=== PATIENT | female | born 1960 | race Two or more races ===

== ENCOUNTER 2018-01-22 04:40 | Inpatient (IN) | payer OTHER ==
[~2018-01-22] VITALS: Ht 157.5 cm; Wt 89.4 kg
[2018-01-22] MEDS ORDERED: CELECOXIB 100 MG CAPSULE ONE (05:05)
[2018-01-22] MEDS ORDERED: METOCLOPRAMIDE HCL 10 MG/2 ML VIAL ONE (05:05)
[2018-01-22] MEDS ORDERED: oxyCODONE HCL SR 10MG TAB.SR.12H PO ONE (05:05)
[2018-01-22] MEDS ORDERED: ACETAMINOPHEN ES 500 MG TABLET ONE (05:05)
[2018-01-22] MEDS ORDERED: ANESTHESIA TRAY IN PYXIS 1 EA TRAY MC ONE ×2 (06:19→06:56)
[2018-01-22] MEDS ORDERED: MORPHINE SULFATE INJ 4 MG/ML DISP.SYRIN ONE (06:33)
[2018-01-22] MEDS ORDERED: BUPIVACAINE 0.5 % PF 150 MG/30 ML VIAL ONE ×2 (06:33→06:56)
[2018-01-22] MEDS ORDERED: KETOROLAC TROMETHAMINE INJ 30 MG/ML VIAL ONE ×2 (06:33→10:11)
[2018-01-22] MEDS ORDERED: BACITRACIN 50000 UNITS/VIAL ONE ×2 (06:34→06:56)
[2018-01-22] MEDS ORDERED: FENTANYL PF 100MCG/2ML AMPUL ONE (06:54)
[2018-01-22] MEDS ORDERED: MIDAZOLAM HCL 2 MG/2ML VIAL ONE (06:54)
[2018-01-22] MEDS ORDERED: CLINDAMYCIN 900 MG/6 ML VIAL ONE (06:57)
[2018-01-22] MEDS ORDERED: TRANEXAMIC ACID 1,500 MG in IV NS 0.9% 50 ML IV ONE (08:00)
[2018-01-22] MEDS ORDERED: oxyCODONE IR immediate release 5 MG ONE (10:13)
[2018-01-22] MEDS ORDERED: ASPIRIN 600 MG/SUPP.RECT RC ONE (10:30)
[2018-01-22 12:00] VITALS: BP 129/82
--- NOTE | 2018-01-22 12:00 | NUR ---
PATIENT POS OP AFTER RIGHT SHOULDER REPLACEMENT, WAS BROUGHT TO THE UNIT BY BORIS FROM OR, FOR OBSERVATION ONLY PURPOSES DUE TO PATIENT'S INCREASED HR AND DECREASED O2 SATURATION. PATIENT IS STABLE, VITAL SIGNS ARE BP 129/82, HR 103, O2 SAT 92% ON 4 L O2 VIA NC. TEMP: 97.5, RR: 18. PATIENT IS ALERT ORIENTED X3, IN SLIGHT DISCOMFORT DUE TO SURGERY BUT DENIES SIGNIFICANT PAIN. RESPIRATIONS EVEN UNLABORED. IN NO APPARENT DISTRESS AT THIS TIME. ORDER IN PLACE BY DR. GARCIA TO DC HOME ONCE PATIENT URINATES AND O2 SAT IS ABOVE 93% ON ROOM AIR. PATIENT WAS MADE COMFORTABLE IN BED. CONTINUOUS PULSE OX MONITOR APPLIED ORDERED. ORIENTED TO THE ROOM, UNIT AND ASSISTING STAFF. FAMILY AT BEDSIDE. SAFETY MEASURED IMPLEMENTED BED IN LOW LOCKED POSITION, SIDE RAILS UP X2, CALL LIGHT WITHIN EASY REACH, WILL CARRY OUT FURTHER ORDERS AND CONTINUE TO MONITOR.
--- NOTE | 2018-01-22 13:00 | NUR ---
PATIENT'S O2 SATURATION IS AT 91% WITH 5L O2 VIA NC. WILL CONTINUE TO MONITOR.
--- NOTE | 2018-01-22 13:00 | NUR ---
DR GARCIA, ANESTHESIOLOGIST, AT BEDSIDE. EXPLAINED PATIENT'S CONDITION TO THE FAMILY AND SUGGESTED OVERNIGHT STAY FOR SAFETY. CALLED ITZEL SALMON NP TO DISCUSS PATIENTS CONDITION AND POSSIBLE ADMISSION TO THE UNIT.
--- NOTE | 2018-01-22 14:15 | NUR ---
PATIENT WAS ABLE TO URINATE. DENIES ANY DIFFICULTY WHILE URINATING. WILL CONTINUE TO MONITOR.
--- NOTE | 2018-01-22 14:30 | NUR ---
PATIENT'S CONDITION REMAINS THE SAME. O2 SATURATION 91% ON 4L O2 VIA NC.
[2018-01-22 16:00] VITALS: BP 129/77
[2018-01-22] MEDS ORDERED: OMEP20CA10 PO (16:05)
[2018-01-22] MEDS ORDERED: MELO15TA13 PO (16:05)
[2018-01-22] MEDS ORDERED: HYDR-4075 PO (16:05)
[2018-01-22] MEDS ORDERED: AMLO10TA2 PO (16:05)
--- NOTE | 2018-01-22 16:30 | NUR ---
ITZEL SALMON AT BEDSIDE, ASSESSED THE PATIENT REVIEWED HISTORY. ORDERS RECEIVED TO ADMIT THE PATIENT TO INPATIENT SERVICES.
[2018-01-22] MEDS ORDERED: ONDANSETRON HCL/PF 4 MG/2 ML VIAL IVP PRN (17:00)
[2018-01-22] MEDS ORDERED: Z GUARD REMEDY 2 OZ OINT TP PRN (17:00)
[2018-01-22] MEDS ORDERED: HYDROCODONE/APAP 5/325MG 1 EACH TABLET PO PRN (17:00)
[2018-01-22] MEDS ORDERED: HYDROCODONE/APAP 10/325MG 1 EA TABLET PO PRN (17:00)
[2018-01-22] MEDS ORDERED: MAG HYDROX/AL HYDROX/SIMETH 30 ML UDC PO PRN (17:00)
[2018-01-22] MEDS ORDERED: MAGNESIUM HYDROXIDE 30 ML UDC PO PRN (17:00)
--- NOTE | 2018-01-22 17:00 | NUR ---
MS ARC CUTTER PLASMA ARC NOTE PATIENT WAS ADMITTED TO INPATIENT SERVICES, COMPREHENSIVE INITIAL ASSESSMENT COMPLETE, PATIENT REFUSED FULL BODY CHECK DUE TO DIFFICULTY TURNING IN BED AT THIS TIME. PATIENT IS POST OP SHOULDER ARTHROPLASTY. O2 SATURATION REMAINS IN 90-92% ON 4L O2 VIA NC. CONTINUOUS PULSOX MONITOR AT BEDSIDE. ALL BELONGINGS ARE WITH FAMILY, FAMILY AT BEDSIDE, PLANNING AN OVERNIGHT STAY WITH THE PATIENT. PATIENTIS STABLE, SAFETY MEASURES REINFORCED, BED IN LOW LOCKED POSITION SIDE RAILS UP X2, CALL LIGHT WITHIN EASY REACH. WILL CARRY OUT ADMISSION ORDERS AND CONTINUE TO MONITOR.
[2018-01-22] MEDS: hydrALAZINE HCL 10 MG TABLET PO SCH (17:47)
[2018-01-22 17:55] LABS: BASOPHILS % (AUTO) 0.1 % (0.0-2.0); EOSINOPHILS % (AUTO) 0.1 % (0.0-6.0); HEMATOCRIT 40 % (33-45); LYMPHOCYTES # (AUTO) 0.8 /CMM (0.8-4.8); LYMPHOCYTES % (AUTO) 6.4 % (20.0-44.0); MEAN CORPUSCULAR HEMOGLOBIN 32 PG (26.0-33.0); MEAN CORPUSCULAR HGB CONC 35 g/dl (31.0-36.0); MEAN CORPUSCULAR VOLUME 92 fL (82-100); MONOCYTES # (AUTO) 0.5 /CMM (0.1-1.30); MONOCYTES % (AUTO) 4.1 % (2.0-12.0); NEUTROPHILS % (AUTO) 89.3 % (43.0-81.0); PLATELET COUNT (AUTO) 195 /CMM (150-450); RDW COEFFICIENT OF VARIATION 12.7 (11.5-15.0); RED BLOOD CELL COUNT(AUTO) 4.38 MIL/uL (4.0-5.2); WHITE BLOOD COUNT (AUTO) 12.3 K/uL (4.3-11.0)
[2018-01-22 18:42] LABS: THYROID STIMULATING HORMONE 0.622 uIU/mL (0.358-3.74)
[2018-01-22 19:00] LABS: CALCIUM, SERUM 8.8 mg/dL (8.5-10.1); CREATININE 0.8 mg/dL (0.6-1.3); POTASSIUM 3.5 mmol/L (3.5-5.1)
--- NOTE | 2018-01-22 19:40 | NUR ---
MS/RN OPENING NOTES PT RECEIVED, A/OX4, UKRAINIAN SPEAKING. ABLE TO MAKE NEEDS KNOWN. DAUGHTER AT BEDSIDE. CURRENTLY ON 4L O2 VIA NC, BREATHING EVEN AND UNLABORED. NO SOB OR DISTRESS AT THIS TIME. GOAL IS TO HAVE SPO2 > 93% ON RA. NOTED RECENT EMESIS AND CURRENTLY HAVING NAUSEA. WILL ADMINISTER ZOFRAN ORDERED. DENIES PAIN AT THIS TIME. IV TO LEFT THUMB PATENT AND INTACT. RIGHT ARM IN SLING AND SUPPORTED ON PILLOW. BED IN LOW/LOCKED POSITION WITH CALL LIGHT IN REACH. SIDE RAILS UPX2. WILL CONTINUE TO MONITOR
[2018-01-22 20:00] VITALS: BP 100/51
[2018-01-22 20:09] VITALS: BP 129/82
--- NOTE | 2018-01-22 20:21 | NUR ---
MS RN CLOSING NOTE PATIENT IN BED, ALERT ORIENTED X4, IN NO APPARENT DISTRESS OR DISCOMFORT AT THIS TIME, PATIENT IS ON 4L O2 VIA NC SATURATING IN 90-92%. RESPIRATIONS EVEN AND UNLABORED, DENIES PAIN AND SOB. IN NO APPARENT DISTRESS OR DISCOMFORT. PATIENT TOLERATED FOOD AND VOIDED POS-OP. ABLE TO COMMUNICATE NEEDS IN ARABIC. FAMILY AT BEDSIDE AVAILABLE TO TRANSLATE. ALL NEEDS ATTENDED, SAFETY MEASURES IN PLACE, BED IN LOW LOCKED POSITION, SIDE RAILS UP X2, CALL LIGHT WITHIN EASY REACH. WILL ENDORSE TO PM NURSE FOR NAFISA.
--- NOTE | 2018-01-22 22:00 | NUR ---
LISET (DTR)= [phone] FARRUKH (SON)= [phone]
[2018-01-22] MEDS: ACETAMINOPHEN 325 MG TABLET PO PRN (22:49)
[2018-01-23] VITALS (8 sets, daily range): BP systolic 96–132; BP diastolic 57–84
--- NOTE | 2018-01-23 06:23 | NUR ---
MS/RN NOTES PT C/O OF UPSET STOMACH. ADMINISTERED PRN MAALOX. NOTED "SOME" PAIN TO RIGHT ARM. OFFERED PAIN MEDICATION, HOWEVER PT WANTS TO WAIT UNTIL BREAKFAST.
--- NOTE | 2018-01-23 07:20 | NUR ---
RN INITIAL NOTES: PATIENT RESTING IN BED. NONLABORED BREATHING NOTED ON 1L NASAL CANNULA. DENYING PAIN. IV SITE ON LEFT HAND PATENT AND INTACT.SLING ON RIGHT ARM INTACT. PATIENT ABLE TO MOVE FINGERS, CAPILLARY REFILL LESS THAN 3 SECONDS, AND PATIENT DENYING SENSORY DEFICITS. BED IN LOWEST LOCKED POSITION. CALL LIGHT WITHIN REACH
[2018-01-23] MEDS ORDERED: PANTOPRAZOLE 40 MG TABLET.DR PO SCH (07:30)
--- NOTE | 2018-01-23 07:40 | NUR ---
MS/RN CLOSING NOTES PT AWAKE, RESTING COMFORTABLY IN BED. TITRATED O2 TO 1.5L VIA NC, BREATHING EVEN AND UNLABORED. NO SOB OR DISTRESS AT THIS TIME. SPO2 93-94%. UNABLE TO TOLERATE ROOM AIR AT THIS TIME, SPO2 88-89%. GOAL IS TO HAVE SPO2 > 93% ON RA. NO C/O OF NAUSEA OR PAIN THROUGHOUT SHIFT. WANTS TO WAIT FOR TYLENOL WITH BREAKFAST. RIGHT ARM REMAINS IN SPLINT SUPPORTED ON PILLOW. ASSISTED PT TO BATHROOM, STEADY GAIT. URINATING WELL, PASSING GAS BUT NO BM YET. IV TO LEFT THUMB PATENT AND INTACT. BED IN LOW/LOCKED POSITION WITH CALL LIGHT IN REACH. SIDE RAILS UPX2. NO SIGNIFICANT CHANGES OVERNIGHT. KEPT PT COMFORTABLE THROUGHOUT SHIFT. ALL NEEDS MET. ENDORSED TO DAY SHIFT MARY SKELTON.
[2018-01-23] MEDS: hydrALAZINE HCL 10 MG TABLET PO SCH ×2 (09:00→16:56)
[2018-01-23] MEDS ORDERED: AMLODIPINE BESYLATE 10 MG TABLET PO SCH (09:00)
[2018-01-23 09:27] LABS: CALCIUM, SERUM 8.7 mg/dL (8.5-10.1); CREATININE 1.1 mg/dL (0.6-1.3); POTASSIUM 3.6 mmol/L (3.5-5.1)
[2018-01-23] MEDS: ACETAMINOPHEN 325 MG TABLET PO PRN (10:11)
--- NOTE | 2018-01-23 10:15 | NUR ---
tylenol administered per orders for mild pain on left arm
--- NOTE | 2018-01-23 11:00 | NUR ---
PATIENT STATES THAT PAIN HAS SUBSIDED TO "07/22"
[2018-01-23 11:39] LABS: BASOPHILS % (AUTO) 0.4 % (0.0-2.0); EOSINOPHILS % (AUTO) 0.7 % (0.0-6.0); HEMATOCRIT 37 % (33-45); HEMOGLOBIN 12.6 g/dL (11.5-14.8); LYMPHOCYTES # (AUTO) 1.7 /CMM (0.8-4.8); LYMPHOCYTES % (AUTO) 16.9 % (20.0-44.0); MEAN CORPUSCULAR HEMOGLOBIN 32 PG (26.0-33.0); MEAN CORPUSCULAR HGB CONC 34 g/dl (31.0-36.0); MEAN CORPUSCULAR VOLUME 93 fL (82-100); MONOCYTES # (AUTO) 0.7 /CMM (0.1-1.30); MONOCYTES % (AUTO) 6.6 % (2.0-12.0); NEUTROPHILS # (AUTO) 7.5 /CMM (1.8-8.9); NEUTROPHILS % (AUTO) 75.4 % (43.0-81.0); PLATELET COUNT (AUTO) 178 /CMM (150-450); RDW COEFFICIENT OF VARIATION 12.9 (11.5-15.0); RED BLOOD CELL COUNT(AUTO) 3.95 MIL/uL (4.0-5.2)
--- NOTE | 2018-01-23 14:21 | NUR ---
PER ITZEL SALMON, STAFFING ACCOUNT MANAGER - OK TO GIVE ASPIRIN ENTERIC COATED 325 MG X1 TIME OK TO ORDER BENADRYL 25 MG IV Q 6 HOURS VERBAL READBACK DONE PER PATIENT, SHE HAS TAKEN ASPIRIN 5 YEARS AGO AND SHE FELT "SHAKINESS." PATIENT DENYING THAT SHE EXPERIENCED SOB, THROAT CLOSING, AND ITCHINESS WHEN INGESTED ASPIRIN
[2018-01-23] MEDS ORDERED: ASPIRIN EC 325 MG TABLET.DR PO ONE (14:30)
[2018-01-23] MEDS ORDERED: diphenhydrAMINE HCL 50 MG/ML VIAL IV PRN (14:30)
--- NOTE | 2018-01-23 14:30 | NUR ---
PER ITZEL SALMON, RESPIRATORY EQUIPMENT ASSISTANT- DISCHARGE AFTER 3 HOURS IF PATIENT NOT EXPERIENCING ANY SYMPTOMS OF ALLERGIC REACTION VERBAL READBACK DONE
--- NOTE | 2018-01-23 14:50 | NUR ---
Patient is alert and pleasant. Lives at home with family. Prior to admission, she was ambulatory and independent with adl's. No homehealth or DME reported. Has good family support. Family will provide ride when discharge. Addendum: 01/23/18 at 1453 by NELY ARIAS RN Amended: Links added.
[2018-01-23] MEDS ORDERED: ASPI-992 PO (15:12)
--- NOTE | 2018-01-23 15:23 | NUR ---
ASPIRIN ADMINISTERED PER ITZEL SALMON CORE FITTER ORDERS NONLABORED BREATHING NOTED ON ROOM AIR. PATIENT DENYING SOB. WILL CONTINUE TO MONITOR
--- NOTE | 2018-01-23 15:48 | NUR ---
PATIENT DENYING SOB, DENYING ITCHINESS. NONLABORED BREATHING NOTED ON ROOM AIR. SPO2 WNL IV SITE PATENT AND INTACT
--- NOTE | 2018-01-23 18:54 | NUR ---
RN NOTES INITIAL : PATIENT DISCHARGED PER ITZEL SALMON'S ORDERS. ALL BELONGINGS GIVEN TO PATIENT. IV LINE REMOVED. PRESCRIPTIONS WITH PATIENT. EDUCATED PATIENT AND DAUGHTER ON DISCHARGE INSTRUCTIONS, DISCHARGE MEDICATIONS, AND FINAL EXPENSE AGENT INSTRUCTIONS. BOTH VERBALIZED UNDERSTANDING. NO SIGNS OF ANAPHYLACTIC SHOCK AFTER ADMINISTRATION OF ASPIRIN. PATIENT DENIED SOB, DENIED ITCHINESS. NONLABORED BREATHING NOTED ON ROOM AIR. SPO2 WNL. NO RASHES NOTED PATIENT AMBULATED AND NOTED TO BE STEADY. SPO2 GREATER THAN 94% UPON AMBULATION. NO SIGNS OF URINARY RETENTION. PATIENT ACCOMPANIED TO PRIVATE CAR BY STAFF MEMBER. PATIENT LEFT WITH DAUGHTER.
--- NOTE | 2018-01-23 19:01 | NUR ---
RN NOTES CLOSING , : PATIENT DISCHARGED PER ITZEL SALMON'S ORDERS. ALL BELONGINGS GIVEN TO PATIENT. IV LINE REMOVED. PRESCRIPTIONS WITH PATIENT. EDUCATED PATIENT AND DAUGHTER ON DISCHARGE INSTRUCTIONS, DISCHARGE MEDICATIONS, AND SCRAP METAL BURNER INSTRUCTIONS. BOTH VERBALIZED UNDERSTANDING. NO SIGNS OF ANAPHYLACTIC SHOCK AFTER ADMINISTRATION OF ASPIRIN. PATIENT DENIED SOB, DENIED ITCHINESS. NONLABORED BREATHING NOTED ON ROOM AIR. SPO2 WNL. NO RASHES NOTED
== END 2018-01-23 18:45 | disposition home or self-care (01) | DRG 483 ==
LOC: DS 04:40 → MED 14:25
PROVIDERS: ADMIT Nurse Practitioner Acute Care; ATTEND Orthopaedic Surgery
PROC: 0RRJ00Z Replacement of Right Shoulder Joint with Reverse Ball and Socket Synthetic Substitute, Open Approach (ICD-10-PCS; principal; 2018-01-22 07:00)
DX: M75.101 Unspecified rotator cuff tear or rupture of right shoulder, not specified as traumatic (principal); J96.01 Acute respiratory failure with hypoxia; I51.7 Cardiomegaly; Z82.49 Family history of ischemic heart disease and other diseases of the circulatory system; I10 Essential (primary) hypertension; D72.829 Elevated white blood cell count, unspecified
CPT/HCPCS: 36415; 71045-TC; 73020; 80048-TC; 80061-TC; 84443-TC; 85025-TC; 86850-TC; 86921-TC; 87081-TC; A4216; J1200; J1885; J2250; J2270; J2405; J2765; J3010; J3490